=== PATIENT | female | born 1950 | race Caucasian/White ===

== ENCOUNTER → 2016-10-19 | Outpatient (CLI) | payer MEDICARE, BC ==
[~2016-10-19] MED LIST: ALBUTEROL0.63 MG/3 INH; ASPIRIN81 MG PO; ATROVENT INH S2.5 ML NEB; BACTRIM D.S. TAB1 EA PO; BACTROBAN OINT22 GM TOP; CARTIA XT120 MG PO; CLARITIN10 MG PO; COZAAR50 MG PO; DULERA 200 MCG8.8 GM INH; ELAVIL 25 MG TA25 MG PO; LEXAPRO TAB 1010 MG PO; LIPITOR TAB 2020 MG PO; LORTAB 5-325 M1 EACH PO; METOPROLOL TART25 MG PO; NEURONTIN 300300 MG PO; NEXIUM40 MG PO; NITROGLYCERIN0.4 MG SL; PREDNISONE10 MG PO; PREDNISONE20 MG PO; SPIRIVA18 MCG INH; TESSALON PERLE100 MG PO; TYLENOL 325MG325 MG PO; VENTOLIN/PROVE0.5 ML INH; VITAMIN D1000 UNI1 PO
== END ==
LOC: RT 11:32
DX: R09.02 Hypoxemia (principal)
CPT/HCPCS: 36600; 82803

== ENCOUNTER → 2017-01-18 | Outpatient (CLI) | payer MEDICARE, BC | LOC: LAB 14:30 | DX: E53.8 Deficiency of other specified B group vitamins (principal); D61.818 Other pancytopenia; M80.021 Age-related osteoporosis with current pathological fracture, right humerus; E66.8 Other obesity; E78.2 Mixed hyperlipidemia; F17.210 Nicotine dependence, cigarettes, uncomplicated; J43.8 Other emphysema; F44.9 Dissociative and conversion disorder, unspecified; L03.116 Cellulitis of left lower limb; N18.3 Chronic kidney disease, stage 3 (moderate); I12.9 Hypertensive chronic kidney disease with stage 1 through stage 4 chronic kidney disease, or unspecified chronic kidney disease; N39.0 Urinary tract infection, site not specified; R07.89 Other chest pain; R60.0 Localized edema | CPT/HCPCS: 36415; 82607 ==

== ENCOUNTER → 2020-11-03 | Outpatient (CLI) | payer MEDICARE, BC | LOC: KOH-I 10-24 14:30 | DX: Z87.891 Personal history of nicotine dependence (principal); R91.1 Solitary pulmonary nodule | CPT/HCPCS: 71271 ==

== ENCOUNTER → 2020-11-19 | Outpatient (CLI) | payer MEDICARE, BC ==
[2020-11-19 13:44] LABS: HEMOGLOBIN 11.9 gm/dl (12.3-15.3); RED BLOOD COUNT 3.52 M/UL (4.00-5.10); WHITE BLOOD COUNT 7.4 K/UL (4.5-11.0)
[2020-11-19 13:58] LABS: BUN/CREATININE RATIO 25 (0-10)
== END ==
LOC: LAB 12:46
PROVIDERS: Internal Medicine
DX: L93.0 Discoid lupus erythematosus (principal); D89.89 Other specified disorders involving the immune mechanism, not elsewhere classified; R76.8 Other specified abnormal immunological findings in serum; Z92.29 Personal history of other drug therapy; Z79.899 Other long term (current) drug therapy
CPT/HCPCS: 80053; 85025; 85652; 86140

== ENCOUNTER → 2021-08-05 | Outpatient (CLI) | payer MEDICARE, BC | LOC: LBRF 15:56 | DX: C09.9 Malignant neoplasm of tonsil, unspecified (principal) | CPT/HCPCS: 88342 ==

== ENCOUNTER → 2021-08-12 | Outpatient (CLI) | payer MEDICARE, BC | LOC: CT 09:52 | DX: C09.9 Malignant neoplasm of tonsil, unspecified (principal); R59.0 Localized enlarged lymph nodes | CPT/HCPCS: 36415; 70491; 82565; 84520; Q9967 ==

== ENCOUNTER → 2021-10-13 | Day surgery (SDC) | payer MEDICARE, BC ==
[~2021-10-13] MED LIST changes: +ASPIRIN-DIPYRIDAMOLE PO; +BASAGLAR K100 UNIT/1 SC; +FUROSEMIDE20 MG PO; +HYDROXYCHLOROQ200 MG PO; +ISOSORBIDE MONO30 MG PO; +MAGNESIUM OXID400 M2 PO; +NORVASC5 MG PO; +POTASSIUM CHLO10 MEQ PO; +PROAIR DIGIHAL90 MCG PO; +SYMBICORT 160-1 INHA INH
== END | disposition home or self-care (01) ==
LOC: OR 06:12
DX: C76.0 Malignant neoplasm of head, face and neck (principal); E46 Unspecified protein-calorie malnutrition; J44.9 Chronic obstructive pulmonary disease, unspecified; I11.0 Hypertensive heart disease with heart failure; I50.9 Heart failure, unspecified; I25.10 Atherosclerotic heart disease of native coronary artery without angina pectoris; F32.A Depression, unspecified; K21.9 Gastro-esophageal reflux disease without esophagitis; E78.00 Pure hypercholesterolemia, unspecified; M81.0 Age-related osteoporosis without current pathological fracture; E11.9 Type 2 diabetes mellitus without complications; Z68.20 Body mass index [BMI] 20.0-20.9, adult; Z87.891 Personal history of nicotine dependence; Z95.5 Presence of coronary angioplasty implant and graft; Z79.4 Long term (current) use of insulin; Z79.899 Other long term (current) drug therapy; Z20.822 Contact with and (suspected) exposure to COVID-19
CPT/HCPCS: 82962; J2001; J2704; J7030; J7040

== ENCOUNTER 2021-10-19 10:44 | Emergency (ER) | payer MEDICARE, BC ==
[~2021-10-19 10:44] MED LIST changes: -ALBUTEROL0.63 MG/3 INH; -PROAIR DIGIHAL90 MCG PO
== END 2021-10-19 13:45 | disposition home or self-care (01) ==
LOC: ER1 10:44
DX: Z43.1 Encounter for attention to gastrostomy (principal); I10 Essential (primary) hypertension; E11.9 Type 2 diabetes mellitus without complications
CPT/HCPCS: 74018; 99283; Q9963

== ENCOUNTER 2021-10-20 10:27 | Inpatient (IN) | payer MEDICARE, BC ==
[~2021-10-20] VITALS: Ht 157.5 cm; Wt 49.9 kg
[~2021-10-20 10:27] MED LIST changes: +CLARITIN10 MG PEG; -CLARITIN10 MG PO; +LIPITOR TAB 2020 MG PEG; -LIPITOR TAB 2020 MG PO; +MAGNESIUM OXID400 M2 PEG; -MAGNESIUM OXID400 M2 PO; +METOPROLOL TART25 MG PEG; -METOPROLOL TART25 MG PO; +NEXIUM40 MG PEG; -NEXIUM40 MG PO; +NORVASC5 MG PEG; -NORVASC5 MG PO
[2021-10-21] MEDS ORDERED: PROAIR DIGIHAL90 MCG INH (06:45)
[2021-10-21 09:06] LABS: RED BLOOD COUNT 2.82 M/UL (4.00-5.10); WHITE BLOOD COUNT 10.5 K/UL (4.5-11.0)
[2021-10-21 09:35] LABS: BUN/CREATININE RATIO 31 (0-10)
[2021-10-21] MEDS ORDERED: ALBUTEROL2.5 MG/3 M INH (10:18)
--- NOTE | 2021-10-21 17:09 | NUR ---
1700 - 1730: STAT ABG PENDING RESULTS, PLACED ON TELE AND NOTINGSPO2 97% AND SINUS TACHTCARDIA 145. EKG ORDERED. LASIX 40 MG IV GIVEN THROUGH NEW IV #22 IN RIGHT THUMB. NOTIFIED OF INCREASED HEART RATE AND CRITICAL ABGS, NEW ORDERS RECEIVED: TRANSDFER TO PCU, LOPRESSOR 5 MG IV NOW AND PL[address] ON HFNC 15 LPM AND TITRATED DOWN TO 10 LPM, AND THEN DOWN TO 4 LPM HFC, PER RESPIRATORY MAINTAINING SPO2 AT 90%. AWAITING PCU BED FOR TRANSFER TO HIGHER LEVEL OF CARE PER ORDER. 1733: REPORT CALLED TO MARYCARMEN POSADAS IN PCU. WILL TRANSFER WHEN BED AVAILALE.
[2021-10-21] MEDS ORDERED: ACYCLOVIR400 MG PO (21:00)
[2021-10-22 20:40] LABS: RED BLOOD COUNT 3.22 M/UL (4.00-5.10); WHITE BLOOD COUNT 14.3 K/UL (4.5-11.0)
[2021-10-23 09:13] LABS: HEMOGLOBIN 8.6 gm/dl (12.3-15.3); WHITE BLOOD COUNT 14.9 K/UL (4.5-11.0)
[2021-10-23 09:15] LABS: RED BLOOD COUNT 2.72 M/UL (4.00-5.10)
[2021-10-23 09:36] LABS: BUN/CREATININE RATIO 39 (0-10)
[2021-10-24 04:56] LABS: HEMOGLOBIN 8.7 gm/dl (12.3-15.3); RED BLOOD COUNT 2.73 M/UL (4.00-5.10); WHITE BLOOD COUNT 11.6 K/UL (4.5-11.0)
[2021-10-25] MEDS ORDERED: ELIQUIS5 MG PO (10:11)
[2021-10-25 10:14] LABS: HEMOGLOBIN 8.8 gm/dl (12.3-15.3); RED BLOOD COUNT 2.86 M/UL (4.00-5.10); WHITE BLOOD COUNT 10.7 K/UL (4.5-11.0)
[2021-10-26 04:42] LABS: HEMOGLOBIN 8.1 gm/dl (12.3-15.3); WHITE BLOOD COUNT 9.2 K/UL (4.5-11.0)
[2021-10-26 04:44] LABS: RED BLOOD COUNT 2.57 M/UL (4.00-5.10)
[2021-10-27 02:39] LABS: HEMOGLOBIN 7.7 gm/dl (12.3-15.3); RED BLOOD COUNT 2.5 M/UL (4.00-5.10)
[2021-10-27 02:48] LABS: WHITE BLOOD COUNT 6.6 K/UL (4.5-11.0)
[2021-10-28 08:30] LABS: HEMOGLOBIN 8.4 gm/dl (12.3-15.3); RED BLOOD COUNT 2.72 M/UL (4.00-5.10)
[2021-10-29 04:22] LABS: HEMOGLOBIN 7.8 gm/dl (12.3-15.3); RED BLOOD COUNT 2.58 M/UL (4.00-5.10)
[2021-10-30 02:09] LABS: HEMOGLOBIN 7.7 gm/dl (12.3-15.3); RED BLOOD COUNT 2.42 M/UL (4.00-5.10)
[2021-10-31 03:22] LABS: HEMOGLOBIN 6.6 gm/dl (12.3-15.3); RED BLOOD COUNT 2.11 M/UL (4.00-5.10); WHITE BLOOD COUNT 3.8 K/UL (4.5-11.0)
[2021-10-31 12:21] LABS: HEMOGLOBIN 8.9 gm/dl (12.3-15.3)
[2021-11-01 02:30] LABS: HEMOGLOBIN 9.9 gm/dl (12.3-15.3)
[2021-11-01 02:32] LABS: RED BLOOD COUNT 3.22 M/UL (4.00-5.10); WHITE BLOOD COUNT 12.1 K/UL (4.5-11.0)
[2021-11-02 03:06] LABS: HEMOGLOBIN 9.4 gm/dl (12.3-15.3); RED BLOOD COUNT 3.04 M/UL (4.00-5.10)
[2021-11-02 03:07] LABS: WHITE BLOOD COUNT 7.5 K/UL (4.5-11.0)
[2021-11-03 04:37] LABS: HEMOGLOBIN 9.3 gm/dl (12.3-15.3); RED BLOOD COUNT 2.93 M/UL (4.00-5.10)
[2021-11-03 04:56] LABS: WHITE BLOOD COUNT 5.6 K/UL (4.5-11.0)
[2021-11-03 12:12] LABS: CANDIDA ALBICANS Not Detected (Negative); CANDIDA KRUSEI Not Detected (Negative); CANDIDA TROPICALIS Not Detected (Negative); ESCHERICHIA COLI Not Detected (Negative); HAEMOPHILUS INFLUENZAE Not Detected (Negative); KLEBSIELLA OXYTOCA Not Detected (Negative); KLEBSIELLA PNEUMONIAE Not Detected (Negative); KPC-CARBAPENEM-RESISTANCE GENE Not Detected (Negative); PROTEUS Not Detected (Negative); PSEUDOMONAS AERUGINOSA Not Detected (Negative); SERRATIA MARCESANS Not Detected (Negative); STAPHYLOCOCCUS Not Detected (Negative); STAPHYLOCOCCUS AUREUS Not Detected (Negative); STREP AGALACTIAE (GROUP B) Not Detected (Negative); STREP PYOGENES (GROUP A) Not Detected (Negative); STREPTOCOCCUS Not Detected (Negative); vanA/B (VANCOMYCIN RESIST GENE Not Detected (Negative)
--- NOTE | 2021-11-03 13:16 | NUR ---
RECEIVED PATIENT TO RM 4130 AT 1200. PATIENT AWAKE AND ALERT. ORIENTED TO SELF ONLY. SITTER AT BEDSIDE. RESP EVEN AND UNLABORED. LUNGS CLEAR. NO SOA NOTED. ABD SOFT AND NON DISTENDED. BOWEL SOUNDS + X4. PEG TUBE SITE NOTED WITH SUTURES INTACT. SMALL AMOUNT OF BLOODY DRAINAGE NOTED TO SITE. PREVIOUS PEG TUBE SITE NOTED TO BE OPEN AND DRAINING YELLOW DRAINAGE INTO COLOSTOMY BAG. F/C INTACT TO BSD WITH CLEAR YELLOW URINE NOTED. SKIN WARM AND DRY. ALLEVYN NOTED TO BLE ANKLES. TPN INFUSING VIA PICC LINE TO NED. VITAL 1.5 INFUSING VIA PEG TUBE. NO DISTRESS NOTED. WCTM.
[2021-11-05 05:53] LABS: HEMOGLOBIN 8.6 gm/dl (12.3-15.3); RED BLOOD COUNT 2.8 M/UL (4.00-5.10); WHITE BLOOD COUNT 4.6 K/UL (4.5-11.0)
--- NOTE | 2021-11-05 15:04 | NUR ---
PICC LINE REMOVED AT THIS TIME PER VERBAL ORDER DUE TO A POSSIBLE INFECTION.
--- NOTE | 2021-11-07 06:13 | NUR ---
PATIENT CONFUSED FREQUENTLY PULLING AT G TUBE, AND REMOVING IVS. . DRAINAGE LEAKING FROM SIDES OF THAT UNABLE TO MEASURE.
--- NOTE | 2021-11-07 16:04 | NUR ---
1436- Attempted to notify Paolo to obtain consent for PICC line placement. Unable to reach at this time.
[2021-11-07 20:19] LABS: CANDIDA ALBICANS Not Detected (Negative); CANDIDA KRUSEI Not Detected (Negative); CANDIDA TROPICALIS Not Detected (Negative); ESCHERICHIA COLI Not Detected (Negative); HAEMOPHILUS INFLUENZAE Not Detected (Negative); KLEBSIELLA OXYTOCA Not Detected (Negative); KLEBSIELLA PNEUMONIAE Not Detected (Negative); KPC-CARBAPENEM-RESISTANCE GENE Not Detected (Negative); PROTEUS Not Detected (Negative); PSEUDOMONAS AERUGINOSA Not Detected (Negative); SERRATIA MARCESANS Not Detected (Negative); STAPHYLOCOCCUS Not Detected (Negative); STAPHYLOCOCCUS AUREUS Not Detected (Negative); STREP AGALACTIAE (GROUP B) Not Detected (Negative); STREP PYOGENES (GROUP A) Not Detected (Negative); STREPTOCOCCUS Not Detected (Negative); vanA/B (VANCOMYCIN RESIST GENE Not Detected (Negative)
[2021-11-08 03:23] LABS: HEMOGLOBIN 8.3 gm/dl (12.3-15.3); RED BLOOD COUNT 2.7 M/UL (4.00-5.10); WHITE BLOOD COUNT 4.4 K/UL (4.5-11.0)
[2021-11-09 05:58] LABS: RED BLOOD COUNT 2.62 M/UL (4.00-5.10); WHITE BLOOD COUNT 5.6 K/UL (4.5-11.0)
--- NOTE | 2021-11-09 18:29 | NUR ---
pt c/o soa residual checked greater than 100 tf on hold and neb treatment requested.
[2021-11-10 02:26] LABS: HEMOGLOBIN 7.8 gm/dl (12.3-15.3); RED BLOOD COUNT 2.53 M/UL (4.00-5.10); WHITE BLOOD COUNT 4.8 K/UL (4.5-11.0)
[2021-11-11 03:20] LABS: HEMOGLOBIN 7.3 gm/dl (12.3-15.3); RED BLOOD COUNT 2.37 M/UL (4.00-5.10)
[2021-11-11 03:21] LABS: WHITE BLOOD COUNT 3.2 K/UL (4.5-11.0)
[2021-11-12 03:04] LABS: HEMOGLOBIN 10.1 gm/dl (12.3-15.3); RED BLOOD COUNT 3.21 M/UL (4.00-5.10); WHITE BLOOD COUNT 5.1 K/UL (4.5-11.0)
[2021-11-12 03:30] LABS: BUN/CREATININE RATIO 34 (0-10)
--- NOTE | 2021-11-12 14:29 | NUR ---
REPORT GIVEN TO KEILA CONROY AT THIS TIME.
[2021-11-13 06:18] LABS: HEMOGLOBIN 9.9 gm/dl (12.3-15.3); RED BLOOD COUNT 3.17 M/UL (4.00-5.10); WHITE BLOOD COUNT 5.8 K/UL (4.5-11.0)
[2021-11-13] MEDS ORDERED: VITAMIN D-40010 MCG GT (10:09)
[2021-11-13] MEDS ORDERED: AMIODARONE HCL200 MG PEG (10:09)
[2021-11-13] MEDS ORDERED: LOTRIMIN CREAM15 GM TP (10:09)
[2021-11-13] MEDS ORDERED: DIAMOX 250 MG250 MG PEG (10:09)
[2021-11-13] MEDS ORDERED: ASPIRIN EC81 MG PEG (10:09)
[2021-11-13] MEDS ORDERED: TYLENOL ELIXIR GT (10:09)
== END 2021-11-13 16:47 | DRG 326 ==
LOC: ER1 10:27 → MED SURG 4 19:50 → M/S 19:50 → PROG CARE 10-21 18:34 → MED SURG 4 11-03 12:07
PROVIDERS: Internal Medicine; Internal Medicine Infectious Disease; ADMIT Surgery
PROC: 0DH64UZ Insertion of Feeding Device into Stomach, Percutaneous Endoscopic Approach (ICD-10-PCS; 2021-10-20)
PROC: 0DQ64ZZ Repair Stomach, Percutaneous Endoscopic Approach (ICD-10-PCS; 2021-10-20)
PROC: 0DP64UZ Removal of Feeding Device from Stomach, Percutaneous Endoscopic Approach (ICD-10-PCS; 2021-10-20)
PROC: 5A0955A Assistance with Respiratory Ventilation, Greater than 96 Consecutive Hours, High Flow/Velocity Cannula (ICD-10-PCS; 2021-10-20)
PROC: 3E0436Z Introduction of Nutritional Substance into Central Vein, Percutaneous Approach (ICD-10-PCS; principal; 2021-10-20 15:01)
PROC: 02HV33Z Insertion of Infusion Device into Superior Vena Cava, Percutaneous Approach (ICD-10-PCS; 2021-10-22)
PROC: 3E043XZ Introduction of Vasopressor into Central Vein, Percutaneous Approach (ICD-10-PCS; 2021-10-22)
PROC: 5A0945A Assistance with Respiratory Ventilation, 24-96 Consecutive Hours, High Flow/Velocity Cannula (ICD-10-PCS; 2021-10-27)
PROC: 30233N1 Transfusion of Nonautologous Red Blood Cells into Peripheral Vein, Percutaneous Approach (ICD-10-PCS; 2021-10-31)
DX: K94.22 Gastrostomy infection (principal); A41.9 Sepsis, unspecified organism; T80.218A Other infection due to central venous catheter, initial encounter; J96.21 Acute and chronic respiratory failure with hypoxia; J69.0 Pneumonitis due to inhalation of food and vomit; R65.20 Severe sepsis without septic shock; G93.41 Metabolic encephalopathy; I50.33 Acute on chronic diastolic (congestive) heart failure; I48.92 Unspecified atrial flutter; N17.9 Acute kidney failure, unspecified; E87.0 Hyperosmolality and hypernatremia; J98.11 Atelectasis; B37.89 Other sites of candidiasis; E87.1 Hypo-osmolality and hyponatremia; Z66 Do not resuscitate; J30.9 Allergic rhinitis, unspecified; I35.1 Nonrheumatic aortic (valve) insufficiency; M19.90 Unspecified osteoarthritis, unspecified site; I65.29 Occlusion and stenosis of unspecified carotid artery; G56.41 Causalgia of right upper limb; J42 Unspecified chronic bronchitis; M25.511 Pain in right shoulder; M81.0 Age-related osteoporosis without current pathological fracture; R59.1 Generalized enlarged lymph nodes; L93.0 Discoid lupus erythematosus; F32.A Depression, unspecified; M50.30 Other cervical disc degeneration, unspecified cervical region; E78.00 Pure hypercholesterolemia, unspecified; Z96.612 Presence of left artificial shoulder joint; K21.9 Gastro-esophageal reflux disease without esophagitis; E11.51 Type 2 diabetes mellitus with diabetic peripheral angiopathy without gangrene; C05.1 Malignant neoplasm of soft palate; J43.9 Emphysema, unspecified; B96.1 Klebsiella pneumoniae [K. pneumoniae] as the cause of diseases classified elsewhere; B95.2 Enterococcus as the cause of diseases classified elsewhere; I73.9 Peripheral vascular disease, unspecified; D50.9 Iron deficiency anemia, unspecified; D53.9 Nutritional anemia, unspecified; I25.10 Atherosclerotic heart disease of native coronary artery without angina pectoris; R13.10 Dysphagia, unspecified; I27.20 Pulmonary hypertension, unspecified; F22 Delusional disorders; R53.81 Other malaise; R41.0 Disorientation, unspecified; Z51.89 Encounter for other specified aftercare; Z01.811 Encounter for preprocedural respiratory examination; Z87.891 Personal history of nicotine dependence; Z79.899 Other long term (current) drug therapy; Z86.73 Personal history of transient ischemic attack (TIA), and cerebral infarction without residual deficits; Z87.19 Personal history of other diseases of the digestive system; Z88.1 Allergy status to other antibiotic agents; Z79.82 Long term (current) use of aspirin; Z98.49 Cataract extraction status, unspecified eye; Z98.51 Tubal ligation status; Z98.890 Other specified postprocedural states; Z95.5 Presence of coronary angioplasty implant and graft; Z82.49 Family history of ischemic heart disease and other diseases of the circulatory system; Z83.6 Family history of other diseases of the respiratory system; Z83.2 Family history of diseases of the blood and blood-forming organs and certain disorders involving the immune mechanism; Z82.5 Family history of asthma and other chronic lower respiratory diseases; Z83.3 Family history of diabetes mellitus; Z81.8 Family history of other mental and behavioral disorders; Z81.4 Family history of other substance abuse and dependence; Z90.49 Acquired absence of other specified parts of digestive tract; Z79.01 Long term (current) use of anticoagulants; Z99.81 Dependence on supplemental oxygen; Z79.4 Long term (current) use of insulin
CPT/HCPCS: ECHO; 36415; 36430; 36600; 70450; 71045; 74018; 80048; 80053; 80202; 82803; 82962; 83036; 83605; 83735; 83880; 84100; 84132; 84439; 84443; 85014; 85018; 85025; 85027; 85610; 85730; 86850; 86900; 86901; 86920; 87040; 87070; 87077; 87081; 87150; 87186; 87205; 93005; 93306; 94640; 94664; 94760; 97161; 97166; 97530-GP-CQ; 99283; 99284; C1751; C9113; J0610; J0690; J0692; J1100; J1120; J1170; J1200; J1335; J1644; J1650; J1940; J2001; J2060; J2185; J2248; J2270; J2370; J2405; J2704; J2710; J2920; J3010; J3370; J3475; J3480; J3486; J7030; J7050; J7070; J7120; P9016; P9047; Q9963; U0002